=== PATIENT | male | born 1965 | race Caucasian/White ===

== ENCOUNTER 2017-09-30 13:00 | Outpatient (CLI) | payer BC ==
[~2017-09-30] VITALS: Ht 182.9 cm; Wt 101.2 kg
[2017-09-30] MEDS ORDERED: LISI-552 PO (13:09)
[2017-09-30] MEDS ORDERED: NIAC500T24 PO (13:09)
[2017-09-30] MEDS ORDERED: OMEP40CA36 PO (13:09)
[2017-09-30] MEDS ORDERED: LORA10TA7 PO (13:09)
[2017-09-30] MEDS ORDERED: ASPI-586 PO (13:09)
== END 2017-09-30 13:10 ==
LOC: PREOP 13:00
PROVIDERS: ATTEND Surgery
DX: Z01.818 Encounter for other preprocedural examination (principal); Z12.11 Encounter for screening for malignant neoplasm of colon

== ENCOUNTER 2017-10-06 07:07 | Day surgery (SDC) | payer BC, OTHER ==
[~2017-10-06] VITALS: Ht 182.9 cm; Wt 101.2 kg
[~2017-10-06 07:07] MED LIST: ASPI-586 PO; LISI-552 PO; LORA10TA7 PO; NIAC500T24 PO; OMEP40CA36 PO
--- OUTSIDE RECORDS SUMMARY | 2017-10-06 07:10 | XMS REPORT | Continuity of Care Document ---
Author Author [facility] Organization [facility] Address Unknown Phone Unavailable Allergies Active Description Code Type Severity Reaction Onset Reported/Identified Relationship to Patient Clinical Status Yes No Known Drug Allergies [id number] Drug Allergy Unknown N/A 09/30/2017 Medications There is no data. Problems Date Dx Coded Attending Type Code Diagnosis Diagnosed By 01/31/2016 RUDOLPH KIM MD Ot M25.531 PAIN IN RIGHT WRIST 09/29/2017 RUDOLPH KIM MD Ot M25.531 PAIN IN RIGHT WRIST 09/30/2017 MYESHA DICK DO Ot Z01.818 ENCOUNTER FOR OTHER PREPROCEDURAL EXAMIN 09/30/2017 MYESHA DICK DO Ot Z12.11 ENCOUNTER FOR SCREENING FOR MALIGNANT NE 09/30/2017 MYESHA DICK DO Ot Z01.818 ENCOUNTER FOR OTHER PREPROCEDURAL EXAMIN 09/30/2017 MYESHA DICK DO Ot Z12.11 ENCOUNTER FOR SCREENING FOR MALIGNANT NE Procedures There is no data. Results There is no data. Encounters ACCT No. Visit Date/Time Discharge Status Pt. Type Provider Facility Loc./Unit Complaint [id number] 09/30/2017 13:00:00 09/30/2017 13:10:00 DIS Outpatient MYESHA DICK DO [facility] PREOP COLONOSCOPY [id number] 01/12/2016 10:20:00 01/12/2016 23:59:59 CLS Outpatient RUDOLPH KIM MD [facility] RAD WRIST JOINT PAIN RT [id number] 10/06/2017 08:00:00 PEN Preadmit MYESHA DICK DO [facility] ENDO SCREENING
[2017-10-06] MEDS ORDERED: LACTATED RINGERS 1,000 ML IV STA (07:21)
[2017-10-06 07:40] VITALS: BP 134/84
[2017-10-06] MEDS ORDERED: PROPOFOL INJECTION 50 ML IV ONE ×2 (07:44→08:20)
[2017-10-06] MEDS ORDERED: MIDAZOLAM 2 MG/2 ML (VERSED) VIAL ONE ×2 (07:45→08:01)
--- NOTE | 2017-10-06 08:05 | Progress Note-Pre Operative ---
Pre-Operative Progress Note H&P Reviewed The H&P was reviewed, patient examined and no changes noted. Time Seen by Provider: 07:56 Date H&P Reviewed: Oct 06, 2017 Time H&P Reviewed: 07:59 Pre-Operative Diagnosis: Screening Colonoscopy MYESHA DICK DO Oct 06, 2017 08:05
--- NOTE | 2017-10-06 08:33 | Progress Note-Post Operative ---
Post-Operative Progess Note Surgeon (s)/Teacher Aide (s) Surgeon MYESHA DICK DO Teacher Aide: none Pre-Operative Diagnosis Screening Colonoscopy Post-Operative Diagnosis Sigmoid Polyp Internal Hemorrhoids Procedure & Operative Findings Date of Procedure 10/06/17 Procedure Performed/Findings Colonoscopy with cold bx Anesthesia Type IV sedation by PUTTY MAKER Estimated Blood Loss Estimated blood loss (mL): scant Specimens/Packing Specimens Removed sigmoid polyp bx MYESHA DICK DO Oct 06, 2017 08:33
--- NOTE | 2017-10-06 08:34 | Endoscopy Discharge Instruct ---
Endo Procedure/Findings Findings 1.: Polyp 2.: Internal Hemorrhoids Discharge Instructions - Activity: You might feel a little sleepy until tomorrow. This is due to the medicine you received to relax you. Until tomorrow, you should: NOT drive a car, operate machinery or power tools. NOT drink any alcoholic beverages. NOT make any important decisions or sign importortant papers. Do not return to work until tomorrow, unless otherwise instructed. Resume previous activities tomorrow. Diet: Start by taking liquids. If you tolerate liquids, advance to solid food. Make appointment for one week. Notify Physician - If you experience excessive bleeding, unusual abdominal pain, fever, or chest pain, contact your doctor immediately. Follow-Up: - I have received and understand the above instructions and will call my doctor if I have any further questions. Patient Signature Date Nurse Signature Other (Relationship) MYESHA DICK DO Oct 06, 2017 08:34
[2017-10-06 08:50] VITALS: BP 116/71
[2017-10-06 09:15] VITALS: BP 127/89
[2017-10-06 10:22] VITALS: BP 127/89
--- NOTE | 2017-10-06 13:41 | Anesthesia-General Post-Op ---
MAC Patient Condition Mental Status/LOC: Same as Preop Cardiovascular: Satisfactory Nausea/Vomiting: Absent Respiratory: Satisfactory Pain: Controlled Complications: Absent Post Op Complications Complications None Follow Up Care/Instructions Patient Instructions None needed. Anesthesiology Discharge Order Discharge Order Patient is doing well, no complaints, stable vital signs, no apparent adverse anesthesia problems. No complications reported per nursing. MARCO NIELSEN CRNA Oct 06, 2017 13:41
--- NOTE | 2017-10-06 16:14 | OPERATIVE REPORT ---
DATE OF SERVICE: 10/06/2017 PREOPERATIVE DIAGNOSIS: Screening colonoscopy. POSTOPERATIVE DIAGNOSES: Colon polyp, internal hemorrhoids. PROCEDURE: Colonoscopy with cold biopsy. SURGEON: Dr. Hairston. VOLLEYBALL REFEREE: None. ANESTHESIA: IV sedation by the PATIENT SERVICE COORDINATOR. SPECIMEN: Sigmoid polyp biopsy. BLOOD LOSS: Scant. FLUIDS: Per anesthesia. POSTOPERATIVE CONDITION: Stable. INDICATION FOR PROCEDURE: The patient is a 52-year-old male who needed a screening colonoscopy. FINDINGS: The patient had very small polyp and some grade II internal hemorrhoids. No other obvious pathology seen. PROCEDURE NOTE: After informed consent was obtained, the patient was brought to the endoscopy suite and placed in the left lateral decubitus position. He was administered IV sedation by the PATIENT SERVICE COORDINATOR, who then monitored his vital signs the entire time, heart rate, blood pressure and pulse ox. Olympus scope was inserted, pushed all the way and noted a very small flat polyp in the sigmoid colon, elected to do a cold biopsy of this and then continued all the way up to the cecum, took a picture of the appendiceal orifice, noted the ileocecal valve and then slowly withdrew the scope insufflating to look circumferentially at the greenberg looking at the cecum up the ascending colon to hepatic flexure, then down the transverse colon, the splenic flexure, into the descending colon and down into the sigmoid and finally into the rectum, retroflexed and rectal vault saw some internal hemorrhoids probably grade II and then removed the scope. The patient tolerated the procedure and he was recovered in the endoscopy suite. Job ID: [id number] DocumentID: [id number] Dictated Date: 10/06/2017 08:36:31 Integration Software Developer Date: 10/06/2017 16:13:09 Dictated By: MYESHA HAIRSTON DO
== END 2017-10-06 09:30 | disposition home or self-care (01) ==
LOC: ENDO 07:07
PROVIDERS: ATTEND Surgery
DX: Z12.11 Encounter for screening for malignant neoplasm of colon (principal); K63.5 Polyp of colon; K64.1 Second degree hemorrhoids; I10 Essential (primary) hypertension; K21.9 Gastro-esophageal reflux disease without esophagitis; Z79.82 Long term (current) use of aspirin; Z79.899 Other long term (current) drug therapy

== ENCOUNTER → 2021-05-06 | Outpatient (CLI) | payer OTHER ==
[~2021-05-06] MED LIST changes: -LISI-552 PO; +LISI20TA26 PO; -OMEP40CA36 PO; +OMEP40CA6 PO
[2021-05-06 15:24] LABS: CREATINE KINASE MB 0.7 NG/ML (<6.6)
== END ==
LOC: LAB 14:34
PROVIDERS: ATTEND Nurse Practitioner Family
DX: R07.9 Chest pain, unspecified (principal); I10 Essential (primary) hypertension
CPT/HCPCS: 36415; 82553; 83874; 84484